=== PATIENT | male | born 1955 | race Caucasian/White ===

== ENCOUNTER 2024-01-04 20:19 | Inpatient (IN) | payer OTHER, SELFPAY ==
[2024-01-04] VITALS (9 sets, daily range): BP systolic 119–152; BP diastolic 52–83; BMI 32.7
--- NOTE | 2024-01-04 16:06 | ED.GENMED ---
History of Present Illness
General
Chief Complaint: Fever
Source: patient
Exam Limitations: none
Time Seen by Provider: 01/04/24 15:58
Nursing documentation reviewed up to this point in time: agreed with
Travel History
Have you had any contact with someone who has COVID-19?: No
Do you have any symptoms of coronavirus? Fever > 100 degrees, chills, cough, shortness of breath, sore throat, loss of taste or smell, muscle aches, or headache?: No
History of Present Illness
History of Present Illness:
68-year-old male with a past medical history of hypertension, COPD who presents to the emergency department for evaluation of cough and shortness of breath. Patient reports onset of symptoms about 2 weeks ago and have been constant since that time.
He reports that he has had hacking cough occasionally productive of clear sputum. He says he is having progressive shortness of breath. No chest pain. Has not noticed any fever or chills. He denies any chest pain. He says that he has had a
flareup of his gout recently over the past week or so has had some redness, pain in the left knee similar to prior gout flares. He does note that he was seen in urgent care last week for his cough and was given some medications to take but he
cannot recall the names and he says they did not help. He did have an episode of posttussive emesis in triage.
Review of Systems
Review of Systems
All Other Systems: ROS reviewed and negative except as documented in HPI and ROS
Constitutional: Denies fever (Denies fever but had a fever here in triage) or chills
Respiratory: Reports cough and trouble breathing
Cardiac: Denies chest pain or palpitations
ABD/GI: Reports vomiting (Posttussive); Denies abdominal pain or nausea
: Denies flank pain
Musculoskeletal: Denies edema, neck pain or back pain
Neurological: Denies headache
Phy Exam
Physical Exam
Physical Exam:
General: Awake, alert; no acute distress
Head: Normocephalic, atraumatic
Eyes: Conjunctiva normal
Throat: Airway intact, handling secretions
Neck: Trachea midline, supple without meningismus
Lungs: Hacking cough, tachypnea; acceptable pulse ox on room air; diffuse bilateral expiratory wheezing throughout all lung silva
Heart: Tachycardia with regular rhythm, no murmurs, gallops, or rubs
Abd: Soft, non distended, nontender
Neuro: Cranial nerves grossly intact, speech fluid
Extremities: No edema in extremities, warm and well-perfused; he does have some warmth and erythema of the left knee and pain with range of motion, small joint effusion
Scores
Heart Failure Risk
Heart Failure Risk Score: Not Applicable
Heart Score for Chest Pain Patients
STEMI patient?: Not applicable
Withdrawal Assessment of Alcohol
Withdrawal Assessment Completed?: Not applicable
Course
Orders/Labs/Results
Orders:
Orders
01/04/24 16:00
Electrocardiogram (*1) Urgent
Reason for Study: Tachycardia
EKG- Treatment ONCE
Acetaminophen [Tylenol] 500 mg PO NOW STA
CR Chest - 2 Views Urgent
Comment:
Reason For Exam: sob
01/04/24 16:01
0.9% Sodium Chloride 500 ml [Nss] 500 ml IV BOLUS
01/04/24 16:06
Ipratropium/Albuterol Sulfate [Duoneb] 3 ml INH R NOW STA
MethylPREDNISolone PF [Solu-Medrol Pf] 125 mg IV NOW STA
01/04/24 16:37
Blood Culture Q30M
[facility] Source: Blood/Venous
Specimen Description:
01/04/24 16:39
COVID-19 Antigen Urgent
Source: Nasal Swab
Complete Blood Count/With Diff Urgent
Comprehensive Metabolic Panel Urgent
Lactate Level [Lactic Acid] Urgent
NT-proBNP Urgent
Influenza A+B Rapid Molecular Urgent
[facility] Source: Nasal Swab
Specimen Description:
01/04/24 18:14
Body Fluid Cell Count Urgent
What is the Body Fluid: joint
Date Specimen was Collected: 01/04/24
Time Specimen was Collected: 18:07
Comment: with DIFF
Body Fluid Crystals Urgent
What is the Body Fluid: joint
Date Specimen was Collected: 01/04/24
Time Specimen was Collected: 18:07
Body Fluid Glucose Urgent
Fluid Source: Other
Other Source: left knee
Date Specimen was Collected: 01/04/24
Time Specimen was Collected: 18:07
Blood Culture Q30M
KVNG Source: Blood/Venous
Specimen Description:
Fluid Culture with Gram Stain Urgent
K[facility] Source: Joint Fluid
Specimen Description:
Date Specimen was Collected: 01/04/24
Time Specimen was Collected: 18:07
Abnormal Lab Results
01/04/24
16:39
WBC 14.5 H 10^3/uL
(4.8-10.8)
RBC 3.61 L 10^6/uL
(4.70-6.10)
Hgb 10.2 L g/dL
(13.0-18.0)
Hct 31.3 L %
(39.0-52.0)
MCHC 32.6 L g/dL
(33.0-37.0)
MPV 12.3 H fL
(7.4-10.4)
Abs Immat Gran (auto) 0.1 H 10^3/uL
(0-0.05)
Absolute Neuts (auto) 12.1 H 10^3/uL
(1.4-6.5)
Absolute Lymphs (auto) 1.0 L 10^3/uL
(1.2-3.4)
Absolute Monos (auto) 1.3 H 10^3/uL
(0.1-0.6)
Immature Gran % 0.6 H %
(0-0.5)
Neutrophils % 83.3 H %
(42.2-75.2)
Lymphocytes % 6.7 L %
(20.5-51.1)
Glucose 122 H mg/dl
(70-99)
01/04/24 16:39
01/04/24 16:39
Vital Signs
Initial and Last Documented VS:
Initial Vital Signs
Temp Pulse Resp BP Pulse Ox
39.1 C H 129 26 152/83 95
01/04/24 15:47 01/04/24 15:47 01/04/24 15:47 01/04/24 15:47 01/04/24 15:47
Last Documented Vital Signs
Temp Pulse Resp BP Pulse Ox
39.1 C H 96 22 136/61 95
01/04/24 15:47 01/04/24 18:45 01/04/24 18:45 01/04/24 18:04 01/04/24 18:45
Procedures
Incision/Drainage/Joint Aspiration
Left Knee:
Anethesia: 1% Lidocaine with Epi
Preparation: cleaned with Betadine
Type of procedure: aspiration
Nature of site: other (joint effusion)
Loculations broken up: No
How much fluid was obtained?: number in mls (40)
Fluid description: cloudy and yellowish
Treatment: bandaid applied
MDM/Problems Addressed
Differential Diagnosis Includes:
Dyspnea: COPD exacerbation, pneumonia, pulmonary embolism
Knee pain: Gout flare, septic arthritis, osteoarthritis
MDM/Problems Addressed:
68-year-old male presents primarily for evaluation of cough and shortness of breath over the past 2 weeks; also has had some knee pain similar to prior gout flares. He is hypertensive, tachycardic, febrile, tachypneic on arrival. Physical exam as
above. Plan to place an IV check labs including CBC CMP, lactate, blood cultures, BNP. Swab for COVID and influenza. Will check chest x-ray and EKG. Will treat with Tylenol, steroid, DuoNeb. Monitor closely reassess at the above.
Labs reviewed: CBC shows leukocytosis to 14.5. CMP shows no clinically significant abnormalities. His viral swabs are negative here. Chest x-ray no clear pneumonia. Clinical reassessment after DuoNeb and steroid he has had some subjective
improvement still some slight wheezing but improved. Suspect likely viral URI triggered acute COPD exacerbation. Will cover with some azithromycin given fever. As far as his left knee pain�he says this is consistent with prior gout flares but
with his fever and leukocytosis I think he should have arthrocentesis to rule out a septic arthritis; he is agreeable, will proceed with this procedure and send fluid studies.
Arthrocentesis performed to drain 40 cc of cloudy yellowish fluid, sent to lab for analysis, Gram stain and culture.
Fluid shows WBC 75,000 and with positive monosodium urate crystals most consistent with diagnosis of acute inflammatory arthritis secondary to gout. Will hold on antibiotics for now but Gram stain and culture were sent and are pending. Will plan
for admission for continued treatment of acute COPD exacerbation and can follow-up on Gram stain and culture studies. Case discussed with hospitalist for admission.
Chronic conditions affecting care:
Gout, hypertension, COPD
Acute Exacerbation and/or Progression of Chronic Illness:
Acute COPD exacerbation treated with DuoNeb and steroids
*Radiology
Radiology exam reviewed: preliminary read by ED provider and radiology read reviewed
*Pulse Oximetry
Patient hypoxic: no
*Critical Care Note
Total Time (30-74mins, 75-104mins- exclusive of procedures): Not Applicable
Data Reviewed
Source: patient
Patient Management
Discussion with other providers: Hospitalist (Discussed with hospitalist)
Escalation/DeEscalation of care consider admission/obs:
Admission indicated
ED Attending Note
-
Portions of this chart may have been created with voice recognition software.� Occasional wrong word or��sound alike� substitutions may have occurred due to the inherent limitations of voice recognition software.
Discharge Plan
Departure
Discharge Problem:
Chronic obstructive pulmonary disease with acute exacerbation, Gout
Interventions
Interventions:
*Risk Screen - Suicide Last Done: 01/04/24 15:47
*General Assessment Last Done: 01/04/24 15:47
*Neglect/Abuse Screening Last Done: 01/04/24 15:47
ED- Fall Risk Assessment Last Done: 01/04/24 16:07
*ED COVID-19 Vaccine History Last Done: 01/04/24 16:07
ED-Musculoskeletal Assessment Last Done: 01/04/24 16:07
ED- Neurological Assessment Last Done: 01/04/24 16:07
ED- Pulmonary Assessment Last Done: 01/04/24 16:07
ED-Skin Assessment Last Done: 01/04/24 16:07
[2024-01-04] MEDS: DUONEB 3 ML INH (16:46)
[2024-01-04] MEDS: TYLENOL 500 MG PO (16:46)
[2024-01-04] MEDS: NSS 500 IV (16:46)
[2024-01-04] MEDS: SOLU-MEDROL PF 125 MG IV (16:46)
[2024-01-04 17:01] LABS: % Basophils 0.1 % (0-2); % Eosinophils 0.1 % (0-6); % Immature Granulocytes 0.6 % (0-0.5); % Lymphocytes 6.7 % (20.5-51.1); % Monocytes 9.2 % (1.7-9.3); % Neutrophils 83.3 % (42.2-75.2); Absolute Immature Granulocytes 0.1 10^3/uL (0-0.05); Absolute Monocytes 1.3 10^3/uL (0.1-0.6); Absolute Neutrophils 12.1 10^3/uL (1.4-6.5); Hematocrit 31.3 % (39.0-52.0); Hemoglobin 10.2 g/dL (13.0-18.0); Mean Corp Hgb Conc. 32.6 g/dL (33.0-37.0); Mean Corpuscular Hgb 28.3 pg (27.0-31.0); Mean Corpuscular Volume 86.7 fL (80.0-94.0); Mean Platelet Volume 12.3 fL (7.4-10.4); Nucleated Red Blood Cells % 0.3 % (-); Platelet Count 199 10^3/uL (130-400); Red Blood Cell Count 3.61 10^6/uL (4.70-6.10); Red Cell Dist. Width 14.1 % (11.5-14.5); White Blood Cell Count 14.5 10^3/uL (4.8-10.8)
[2024-01-04 17:13] LABS: COVID-19 Antigen Negative (Negative); Lactic Acid 1.8 mmol/L (0.7-2.0)
[2024-01-04 17:15] LABS: ALT (SGPT) 20 U/L (0-50); AST (SGOT) 24 U/L (17-59); Albumin 3.5 g/dl (3.5-5.0); Alkaline Phosphatase 86 U/L (38-126); Blood Urea Nitrogen 13 mg/dl (9-20); Calcium 8.7 mg/dl (8.4-10.2); Carbon Dioxide 27 mmol/L (22-30); Chloride 100 mmol/L (98-107); Estimated Creatinine Clearance 121 ml/min; Glucose 122 mg/dl (70-99); Potassium 4.4 mmol/L (3.5-5.1); Sodium 135 mmol/L (135-145); Total Bilirubin 1.1 mg/dl (0.2-1.3); Total Protein 7.1 g/dl (6.3-8.2); eGFR > 60.00
[2024-01-04 17:23] LABS: NT-proBNP 319 pg/ml
[2024-01-04 18:42] LABS: Body Fluid Glucose 133 mg/dl
[2024-01-04 18:43] LABS: Body Fluid WBC 75830 /CUMM
[2024-01-04 19:00] LABS: Body Fluid Second Tech EYM
--- NOTE | 2024-01-04 19:15 | HPS.HSE ---
Addendum entered and electronically signed by Gal Huber MD 01/04/24 20:20:
HPI
68M Recently moved for [place], no prior visit to , PMH COPD, not on home O2, HTN
pw cough with minimal clear sputum. SoB 2weeks s/p 5 days course of PO prednisone for COPD flare as OP
Also reports Lt ankle pain - cane gait dysfuct then Lt knee pain - HX Gout on colchicine - aspirateed Lt knee by ER attd - senet for aspirate analysis
Reports fever and chills
PHX
COPD
basal cell carcinoma
GOUT
Past Surgical History: Reports Other
Additional Past Surgical History:
basal cell carcinoma
skin graft to Forehead
SHx
Tobacco: Non-smoker
Alcohol: None
Drug: None
Personal: Single
Living: Alone
FHX : Not pertinent
Reviewed VS: T 102 .4 HR 96 BP 136/60 POx 95 % on RA
PE
Gen: pleasant , NAD, not toxic
HEENT: well healed skin graft at fore head , BCC at lt eyes
Neck: supple
Lungs: diffuse exp wheeze
Cor: RRR S1 S2
Abdomen: soft NT NG BS +
PARANORMAL INVESTIGATOR: AAO3 NFND
MS: warm and mild swelling of Lt knee , left ankle swelling, redness
Skin; BCC at lt eyes, Rt Uexs and back
Psych: appropriate
Data
WCC 14s
Hgb 10s
pBNP 319
NEG FLU/ Covid
Lt Knee aspirate by ER attd
Fluid shows WBC 75,000
Positive monosodium urate crystals
CXR
1. Mildly decreased bilateral lung volumes.
2. Mild cardiomegaly.
EKG
SINUS TACHYCARDIA
CANNOT RULE OUT ANTERIOR INFARCT , AGE UNDETERMINED
ABNORMAL ECG
NO PREVIOUS ECGS AVAILABLE
Last hospitalist admission: No prior admission to
ASSESSMENT & PLAN
Persistent COPF flare - inadequate response to OP Steroids
Not home O2 dependent
- check PCT
- Agree with IV steroids - switch to IV Decadron 4mg q8h
- DuoNebs qid and PRN
- f/u POx
- Pul consult
Acute inflammatory arthritis duet gout flare in Lt ankle and Lt knee
HX gout
- IV Dexamethasone to treat both acute gout and COPD AE
- f/u clinical response
- Rhem consult
Current fever is likely 2/2 acute Gout flare - doubt infective
- Observing off ABx for now
HX Basal cell CA: s/p surgery and graft
- at present Basal cell CA on left shoulder, back, b/l eyes, left arm
- pending insurance to follow up with [facility]
Primary HTN
-BP stable
- cont. INFORMATICS NURSE SPECIALIST
DVT Px: LMWH
Code: Full code
IP MS
Original Note:
Family Physician
-
Family Physician: PHYSICIAN PRIVATE
Chief Complaint
-
sob
cough
left ankle and knee pain
History of Present Illness
68-year-old male with a past medical history of hypertension, COPD, basal skin carcinoma who presents to the emergency department for evaluation of cough and shortness of breath since december 17. stated hacking cough with very little sputum
production.sob and cough worse with activity. patient evaluated by urgent care and was prescribed steroids and Tessalon, which he took 5 days course of prednisone with no improvement in his symptoms. stated WATERS and dizzy. patient vomited twice with
cough today. denied abdominal pain, and diarrhea.denied chest pain. � Has not noticed any fever or chills.�denied dysuria or hematuria. day before yesterday, he started having pain in left ankle. its red and swollen. he can barely walk due to the
pain. he is been using his friends cane. today he noticed pain and swelling in his left knee.
he just moved from [place] to [place]. patient has basal cell carcinoma on his back, left shoulder, b/l eyes and right hand. waiting for insurance approval for him to follow up with [facility].
In ER patient received Solu Medrol, Zithromax and neb treatment. admitting for further management.
Medical History
Past Medical History
Past Medical History: Reports Other
Additional Past Medical History:
COPD
basal cell carcinoma
GOUT
Past Surgical History: Reports Other
Additional Past Surgical History:
basal cell carcinoma
skin graft to Forehead
Social History
Tobacco: Non-smoker
Alcohol: None
Drug: None
Personal: Single
Living: Alone
Family History
Family History: Not pertinent
Allergies / Home Medications
Allergies reflects when Allergies were last updated in [employer].
Home Medications with original date entered in [employer]
Allergy/Medication List:
Allergies
Allergy/AdvReac Type Severity Reaction Status Date / Time
aspirin Allergy Intermediate Unknown Verified 01/04/24 15:55
Home Medications
colchicine 0.6 mg tablet 0.6 mg PO DAILY PRN gout 01/04/24
gabapentin 100 mg capsule 200 mg PO DAILY 01/04/24
ibuprofen 200 mg capsule 200 mg PO Q6H PRN mild pain 01/04/24
lisinopril 20 mg tablet 20 mg PO DAILY 01/04/24
Review of Systems
-
Constitutional: Reports No Symptoms
EENT: Reports No Symptoms
Respiratory: Reports Cough and Trouble Breathing
Cardiac: Reports No Symptoms
Abdomen/GI: Reports No Symptoms
: Reports No Symptoms
Musculoskeletal: Reports Other (left ankle and knee pain)
Skin: Reports No Symptoms
Neurological: Reports No Symptoms
Endocrine: Reports No Symptoms
Hematologic/Lymphatic: Reports No Symptoms
Psych: Reports No Symptoms
Physical Exam
Vital Signs
Vital Signs
Temp Pulse Resp BP Pulse Ox
102.4 F H 96 22 136/61 95
01/04/24 15:47 01/04/24 18:45 01/04/24 18:45 01/04/24 18:04 01/04/24 18:45
Physical Exam
General: Well Developed, Well Nourished and No Apparent Distress
HEENT: NormoCephalic, Moist mucous membranes and Atraumatic
Respiratory: Wheezes
Cardiac: S1/S2 and Regular Rhythm; No Murmur or Rub
GI: Soft, Non Tender, Non Distended and Normal Bowel Sounds; No Organomegaly
Rectal: Deferred by Provider
Musculoskeletal: No Clubbing, No Cyanosis and Other (left ankle swelling, redness, left knee pain)
Skin: No Rash
Neuro: AO x 3 and Nonfocal/grossly intact
Psych: Calm
Laboratory Results
-
01/04/24 16:39
01/04/24 16:39
Laboratory Results
Lactic Acid 1.8 mmol/L (0.7-2.0) 01/04/24 16:39
Total Bilirubin 1.1 mg/dl (0.2-1.3) 01/04/24 16:39
AST 24 U/L (17-59) 01/04/24 16:39
ALT 20 U/L (0-50) 01/04/24 16:39
Alkaline Phosphatase 86 U/L (38-126) 01/04/24 16:39
Data Reviewed
-
Diagnostic Radiology: Report Reviewed by me
Lab Data: Labs Reviewed by me
Impression/Plan
-
# COPD exacerbation
-COVID-negative
-Chest x-ray with impression of mildly decreased bilateral lung volumes, mild cardiomegaly
-Negative for influenza A and B
-Decadron 4mg iv every 8 hours
-received a dose of Zithromax in ER
-procal ordered
-hold abx at this time
-nebx prn for sob and wheezing
-oxygenating very well on RA
-continue to monitor oxygenation
-Tylenol prn for fever and pain
-Mucinex for cough
-pulmonology consulted
# left ankle and knee pain likely gout flare
-sepsis as evident by temp 102, tachy on arrival and wbc
-HR improved
-wbc 14.5 likely from steroids
-Knee fluid sent for Gram stain and cultures
-Fluid shows WBC 75,000 and with positive monosodium urate crystals
-Tylenol as needed for pain
-pending culture
-colchicine continued
-Blood cultures sent from ER
-Wound abscess culture sent from ER
-PT consulted
# Normocytic anemia likely chronic
-Hemoglobin 10.2
-No active bleeding
-Continue to monitor
#hxt of Basal cell CA
-s/p surgery and graft
-at present Basal cell CA on left shoulder, back, b/l eyes, left arm
-pending insurance to follow up with [facility]
#essential HTN
-BP stable
-lisinopril continued
#DVT prophylaxis
-Lovenox
#CODE status
-full code
[2024-01-04] MEDS: ZITHROMAX 500 MG PO (20:03)
[2024-01-04 23:06] LABS: Urine Albumin Trace (Neg - Trace); Urine Bilirubin 1+ (Negative); Urine Character Clear (Clear); Urine Color Yellow; Urine Glucose 3+ (Negative); Urine Ketone Trace (Negative); Urine Leukocyte Negative (Negative); Urine Nitrite Negative (Negative); Urine Occult Blood Negative (Negative); Urine Urobilinogen Negative (Neg - 1+)
[2024-01-04 23:19] LABS: Procalcitonin 0.09 ng/ml (0.0-0.25)
[2024-01-04] MEDS: MUCINEX 1200 MG PO (23:49)
[2024-01-04] MEDS: DECADRON 4 MG IV (23:49)
[2024-01-05] VITALS: BP 152/63; BMI 32.2
[2024-01-05 07:05] VITALS: BP 123/58
[2024-01-05 08:06] LABS: Blood Urea Nitrogen 14 mg/dl (9-20); Calcium 8.5 mg/dl (8.4-10.2); Carbon Dioxide 29 mmol/L (22-30); Chloride 102 mmol/L (98-107); Estimated Creatinine Clearance 120 ml/min; Glucose 159 mg/dl (70-99); Potassium 4.6 mmol/L (3.5-5.1); Sodium 133 mmol/L (135-145); eGFR > 60.00
[2024-01-05] MEDS: DECADRON 4 MG IV ×3 (08:07→23:05)
[2024-01-05] MEDS: COLCHICINE 0.599999999999999978 MG PO (08:07)
[2024-01-05] MEDS: MUCINEX 1200 MG PO ×2 (08:07→20:43)
[2024-01-05] MEDS: ZESTRIL 20 MG PO (08:07)
[2024-01-05] MEDS: NEURONTIN 200 MG PO (08:08)
[2024-01-05] MEDS: TYLENOL 650 MG PO (08:18)
[2024-01-05] MEDS: DUONEB 3 ML INH ×2 (08:21→14:59)
[2024-01-05 08:22] LABS: % Immature Granulocytes 0.6 % (0-0.5); % Lymphocytes 6.5 % (20.5-51.1); % Monocytes 3.1 % (1.7-9.3); % Neutrophils 89.8 % (42.2-75.2); Absolute Immature Granulocytes 0.1 10^3/uL (0-0.05); Absolute Lymphocytes 0.9 10^3/uL (1.2-3.4); Absolute Monocytes 0.4 10^3/uL (0.1-0.6); Absolute Neutrophils 12.2 10^3/uL (1.4-6.5); Hematocrit 30.6 % (39.0-52.0); Hemoglobin 9.8 g/dL (13.0-18.0); Mean Corpuscular Hgb 28.2 pg (27.0-31.0); Mean Corpuscular Volume 88.2 fL (80.0-94.0); Mean Platelet Volume 12.5 fL (7.4-10.4); Nucleated Red Blood Cells % 0.1 % (-); Platelet Count 179 10^3/uL (130-400); Red Blood Cell Count 3.47 10^6/uL (4.70-6.10); Red Cell Dist. Width 14.2 % (11.5-14.5); White Blood Cell Count 13.6 10^3/uL (4.8-10.8)
--- NOTE | 2024-01-05 08:31 | CON.PUL ---
Consultation
Consultation Request
Date/Time Consultation Requested: 01/04
Date/Time Consultation Performed: 01/05/2024
Reason for Consultation: COPD
Medical History
-
History of Present Illness:
History obtained from the patient and reviewing the chart. Patient is a 68-year-old male with history of COPD, multiple recurrent skin cancers, basal cell cancer requiring multiple surgeries, who presents with 3 weeks of shortness of breath, chest
congestion, cough. He has been under a lot of stress as his fianc�e recently . He moved from [facility] to the [facility]. Patient describes productive cough but denies hemoptysis. He had been seen by urgent care,
treated with antitussive therapy, steroids. He then developed episode of emesis, headaches and dizziness and for this reason brought himself into [facility] where upon arrival, temperature 102.4, pulse 96, breathing at 22, blood pressure
136/61, 95%. Chest exam per ED records suggest diffuse wheezing. He was admitted for COPD exacerbation, started on IV steroids nebulized therapy. We are asked to comment on his pulmonary process
Of note, patient is complaining of left ankle pain, knee pain and swelling. To me he denied any nausea, emesis. Denies any falls. He does walk with a cane
.
PMH: History of COPD, recurrent basal cell carcinoma requiring multiple surgeries, gout, skin graft of the forehead from the right thigh
Past Medical History
Past Medical History: None (See above)
Past Surgical History: None (See above)
Social History
Tobacco: Former Smoker ([id number] history of smoking quit 2013)
Alcohol: Daily (6 to 12 pack of beer a day, has not drank in 3 weeks)
Drug: None
Personal: Single
Living: With Family (Living with his cousin, moved from [place] November 2023)
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
Family History
Family History: Reviewed & Not Pertinent (Family history negative for lung disease, blood clots, lung cancer)
Allergies / Home Medications
Allergies
Allergy/AdvReac Type Severity Reaction Status Date / Time
aspirin Allergy Intermediate Unknown Verified 01/04/24 15:55
Home Medications
Medication Instructions Recorded Confirmed Last Taken Type
colchicine 0.6 mg tablet 0.6 mg PO DAILY PRN gout 01/04/24 01/04/24 01/04/24 History
gabapentin 100 mg capsule 200 mg PO DAILY 01/04/24 01/04/24 01/04/24 History
ibuprofen 200 mg capsule 200 mg PO Q6H PRN mild pain 01/04/24 01/04/24 Unknown History
lisinopril 20 mg tablet 20 mg PO DAILY 01/04/24 01/04/24 01/04/24 History
Review of Systems
-
All other systems: Negative unless noted
Vitals / Labs / Diagnostic Testing
Vital Signs
Temp Pulse Resp BP Pulse Ox
98.2 F 87 22 123/58 94
01/05/24 07:05 01/05/24 08:25 01/05/24 08:25 01/05/24 08:07 01/05/24 08:25
Lab Data
01/05/24 07:02
01/05/24 07:02
Microbiology
01/04/24 18:14 Joint Fluid Gram Stain - Preliminary
01/04/24 16:39 Nasal Swab Influenza Types A & B (SHELBY) - Final
Negative for Influenza A & B, NAAT
Negative results must be combined with clinical observations
and patient history.
Nucleic Acid Amplification test (NAAT)performed on the
[employer] platform.
Diagnostic Testing:
Physical Exam
-
HEENT: Normocephalic, Anicteric and Other (Erythematous conjunctiva left eye. Skin graft of his forehead)
Cardiovascular: S1/S2, Regular Rhythm, Murmur (n), Rub (n), Peripheral Edema (n), Calf Tenderness (n) and Other (Left seo/ankle discomfort)
Respiratory: Wheeze (Mild scattered), Rales (n), Rhonchi (Mild) and Non-Labored Respirations
GI: Soft and Non Distended (Obese)
Neurology: Awake, Alert, Oriented and No Motor Deficits (Moves all extremities, able to sit up without difficulty)
Skin: Other (Erythematous open wound in the mid back, no obvious drainage. Scattered basal cell carcinoma/surgeries)
General: Comfortable
Assessment
-
68-year-old male with history of COPD, [id number] history of smoking quit 2013, presents with 3 weeks of shortness of breath, chest congestion, cough. He failed outpatient therapy with prednisone and antitussive therapy. Admitted for COPD
exacerbation. Also found to have left lower extremity knee swelling, drained in the ED. We are asked to help from pulmonary standpoint 01/05/2024
Acute COPD exacerbation
3 weeks of symptoms of chest congestion, cough, shortness of breath
Failed outpatient therapy with steroids
Mild bibasilar infiltrate, left greater than right per chest x-ray
Left knee swelling status post aspiration/drainage in the ED 01/05/2024
Sinus tachycardia
inferior Q waves, chronicity unclear
Conditions present prior to admission
Recurrent basal cell carcinoma
Forehead with graft surgery
Arms
Mid back lesion noted
History of gout
[id number] history of smoking quit 2013
Moderate alcohol use, 6-12 beers a day
Last drink 3 weeks ago
Suspected sleep disordered breathing
Plan/recommendations
At this time, patient appears to be comfortable, feels much improved since admission. Diffuse wheezing noted in ED
Presently he has mild wheezing and rhonchi
Chest x-ray with mild bibasilar infiltrate, left greater than right, my review
No old films for review
Significant alcohol and tobacco history noted
Last alcohol drink 3 weeks ago abnormal EKG noted
Moving forward
Continue with IV steroids
Patient would benefit from outpatient evaluation for maintenance inhaler therapy
He denies history of frequent COPD exacerbations
Influenza screen negative, MRSA screen, blood cultures, fluid culture pending
Procalcitonin normal
Continue albuterol/Atrovent as needed
Patient would benefit from lung cancer screening, significant high risk for lung cancer
Consider outpatient low-dose CT chest, outpatient pulm evaluation, outpatient spirometry/PFT
Patient also high risk for sleep apnea based on airway exam
EKG findings noted. Follow clinically
Patient states he has not seen cardiology in the past
Outpatient follow-up information left in chart
We will follow
--- NOTE | 2024-01-05 09:02 | PTCARENOTE ---
pt aaox3. states pain in left knee pain med given as ordered. room air. breath sounds diminished with ex wheezing prn neb given. open sores noted on mid back and both arms. pt declined any wound care.
[2024-01-05 09:20] VITALS: BP 109/56; PULSE 70; O2SAT 97
--- NOTE | 2024-01-05 11:50 | W.PN.HOSP.TC ---
Today's Communication/Plan
-
nebs, steroids
appreciate pulm
Assessment / Plan
Assessment / Plan
# COPD exacerbation
-COVID-negative
-Chest x-ray with impression of mildly decreased bilateral lung volumes, mild cardiomegaly
-Negative for influenza A and B
-Decadron 4mg iv every 8 hours
-received a dose of Zithromax in ER
-procal negative
-hold abx at this time
-nebx prn for sob and wheezing
-oxygenating very well on RA
-continue to monitor oxygenation
-Tylenol prn for fever and pain
-Mucinex for cough
-pulmonology consult appreciated - pt will need follow up on DC
# left ankle and knee pain likely gout flare
-SIRS 2/2 gout, doubt infection (improvement off abx); gram stain neg
-Fluid shows WBC 75,000 and with positive monosodium urate crystals
-Tylenol as needed for pain
-steroids to treat gout flare
-PT/OT
# Normocytic anemia likely chronic
-Hemoglobin 10.2
-No active bleeding
-Continue to monitor
#hxt of Basal cell CA
-s/p surgery and graft
-at present Basal cell CA on left shoulder, back, b/l eyes, left arm
-pending insurance to follow up with [facility]
#essential HTN
-BP stable
-lisinopril continued
#DVT prophylaxis
-Lovenox
#CODE status
-full code
Anticipated Discharge: 24 - 48 hours
Subjective/Interval History
-
Date of Service: January 05, 2024
feeling much better than yesterday
breathing better
left knee less swollen and painful, continues to be uncomfortable
Objective Data
-
Labs:
Laboratory Results
01/05/24
07:02
WBC 13.6 H
Hgb 9.8 L
Hct 30.6 L
Plt Count 179
Sodium 133 L
Potassium 4.6
Chloride 102
Carbon Dioxide 29
BUN 14
Creatinine 0.7
Glucose 159 H
Calcium 8.5
Vital Signs:
Vital Signs
Temp Pulse Resp BP Pulse Ox
98.2 F 87 22 123/58 94
01/05/24 07:05 01/05/24 08:25 01/05/24 08:25 01/05/24 08:07 01/05/24 08:25
Review of Systems
-
History Source: Patient
All other systems: Reviewed and negative
Physical Exam
-
General: No Apparent Distress
HEENT: PERRLA
Respiratory: Wheezes and Decreased Breath Sounds
Cardiac: Regular Rhythm and S1/S2
GI: Soft and Nontender
Musculoskeletal: No Edema
Skin: Warm and Dry; Negative Rash
Neuro: AO x 3
Psych: Calm
Data Reviewed
-
Diagnostic Radiology: Report Reviewed by me
Labs: Labs Reviewed by me
--- NOTE | 2024-01-05 13:04 | CON.RHM ---
Assessment/Plan
-
Will continue steroid taper per Pulmonology
Recommend order serum uric acid
Pt should follow up outpatient for gout management.
History of Present Illness
-
Pt is a 68 yo male hx recurrent skin cancer, gout and COPD who presented to [facility] ED yesterday for COPD exacerbation. At this time he also c/o of gout flare at his left knee and left ankle. Pt was had his left knee aspirated in ED last
evening. Pt notes significant relief s/p aspiration. He notes longstanding hx of gout. He recently moved to this area- was managed by PCP with colchicine PRN. Denies seeing rheum in past. He notes 5/6 gout flares per year. Prior to this last flare
was 2 months ago at great toe. Denies allopuinol in past. Notes hx alcohol abuse, but no alcohol use currently. Denies purine rich diet.
Review of Systems
-
General: Shortness of Breath: Yes
Crystal Arthritis: Left Knee: Yes and Swelling: Yes
Data Reviewed
Patient Allergies
Allergy/AdvReac Type Severity Reaction Status Date / Time
aspirin Allergy Intermediate Unknown Verified 01/04/24 15:55
Physical Exam
-
Constitutional: Alert and Oriented
Skin: Other (large skin graft at forehead)
Psych: Appropriate Behavior and Speech Appropriate
Joints: No Synovitis Anywhere (Left knee is warm, swollen and moderately tender, ecchymosis around aspiration site. Left ankle is warm, tender at lateral aspect. )
-: DIP's: Normal, PIP's: Normal, MCP's: Normal, Right Wrist: Normal, Left Wrist: Normal, Right Elbow: Normal, Left Elbow: Normal, Right Shoulder: Normal and Left Shoulder: Normal
[2024-01-05 15:10] VITALS: BP 109/49
[2024-01-05] MEDS: LOVENOX 40 MG SC (17:28)
[2024-01-05 22:52] VITALS: BP 108/50
[2024-01-06 07:30] VITALS: BP 103/48
[2024-01-06] MEDS: ZESTRIL 20 MG PO (08:25)
[2024-01-06] MEDS: COLCHICINE 0.599999999999999978 MG PO (08:25)
[2024-01-06] MEDS: MUCINEX 1200 MG PO (08:25)
[2024-01-06] MEDS: DECADRON 4 MG IV (08:25)
[2024-01-06] MEDS: NEURONTIN 200 MG PO (08:25)
[2024-01-06] MEDS: TYLENOL 650 MG PO (08:29)
[2024-01-06 08:36] LABS: % Basophils 0.1 % (0-2); % Immature Granulocytes 0.8 % (0-0.5); % Lymphocytes 7.2 % (20.5-51.1); % Monocytes 4.9 % (1.7-9.3); Absolute Immature Granulocytes 0.1 10^3/uL (0-0.05); Absolute Monocytes 0.7 10^3/uL (0.1-0.6); Absolute Neutrophils 12.4 10^3/uL (1.4-6.5); Hematocrit 29.1 % (39.0-52.0); Hemoglobin 9.4 g/dL (13.0-18.0); Mean Corp Hgb Conc. 32.3 g/dL (33.0-37.0); Mean Corpuscular Hgb 28.5 pg (27.0-31.0); Mean Corpuscular Volume 88.2 fL (80.0-94.0); Mean Platelet Volume 12.8 fL (7.4-10.4); Nucleated Red Blood Cells % 0.3 % (-); Platelet Count 142 10^3/uL (130-400); Red Cell Dist. Width 14.2 % (11.5-14.5); White Blood Cell Count 14.2 10^3/uL (4.8-10.8)
--- NOTE | 2024-01-06 08:44 | W.PN.PUL3 ---
Today's Communication / Plan
-
Transition to oral prednisone
Provide albuterol rescue inhaler for now at discharge
Wean by 10 mg every 3 days until off
Ambulate, assess oxygenation
Abnormal EKG noted. Consider outpatient cardiology evaluation
Pulmonary follow-up information left in chart
We will sign off. Please call with questions
Assessment
-
68-year-old male with history of COPD, [id number] history of smoking quit 2013, presents with 3 weeks of shortness of breath, chest congestion, cough. He failed outpatient therapy with prednisone and antitussive therapy. Admitted for COPD
exacerbation. Also found to have left lower extremity knee swelling, drained in the ED. We are asked to help from pulmonary standpoint 01/05/2024
Acute COPD exacerbation
3 weeks of symptoms of chest congestion, cough, shortness of breath
Failed outpatient therapy with steroids
Mild bibasilar infiltrate, left greater than right per chest x-ray
Left knee swelling status post aspiration/drainage in the ED 01/05/2024
Sinus tachycardia
inferior Q waves, chronicity unclear
Conditions present prior to admission
Recurrent basal cell carcinoma
Forehead with graft surgery
Arms
Mid back lesion noted
History of gout
[id number] history of smoking quit 2013
Moderate alcohol use, 6-12 beers a day
Last drink 3 weeks ago
Suspected sleep disordered breathing
Plan/recommendations
At this time, patient appears to be comfortable, feels much improved since admission. Diffuse wheezing noted in ED
Chest exam today is clear, no wheezing, no significant rhonchi
Chest x-ray with mild bibasilar infiltrate, left greater than right, my review
No old films for review
Significant alcohol and tobacco history noted
Last alcohol drink 3 weeks ago abnormal EKG noted
Moving forward
Transition to oral prednisone, wean off over the next 10 days, decrease by 10 mg every 3 days until off
Patient would benefit from outpatient evaluation for maintenance inhaler therapy
He denies history of frequent COPD exacerbations
Influenza screen negative, MRSA screen, blood cultures, fluid culture pending
Procalcitonin normal
Continue albuterol/Atrovent as needed
Patient would benefit from lung cancer screening, significant high risk for lung cancer
Consider outpatient low-dose CT chest, outpatient pulm evaluation, outpatient spirometry/PFT
Patient also high risk for sleep apnea based on airway exam
EKG findings noted. Follow clinically
Patient states he has not seen cardiology in the past
Defer any outpatient or inpatient evaluation to hospitalist
Outpatient follow-up information left in chart
Okay for discharge from pulmonary standpoint
We will sign off. Please call with questions
Subjective Data
-
Date of Service:
Date of Service: January 06, 2024
Subjective:
Patient feels much improved. Feels shortness of breath is back to baseline. Denies cough, chest pain, nausea, abdominal pain. Currently on room air
Objective Data
Data Reviewed
Vital Signs / I&O / Oxygen:
Vital Signs
Temp Pulse Resp BP Pulse Ox
97.8 F 56 18 103/48 99
01/06/24 07:30 01/06/24 07:30 01/06/24 07:30 01/06/24 07:30 01/06/24 07:30
SaO2 99
Physical Exam
General: Comfortable (Large neck)
HEENT: Normocephalic, Anicteric, Other (Mild left conjunctivitis) and Other (Forehead graft from prior basal cell carcinoma)
Cardiovascular: S1-S2, Regular Rhythm, Murmur (n), Rub (n), Peripheral Edema (n) and Calf Tenderness (n)
Respiratory: Wheeze (n), Crackles (n), Rhonchi (n), Non-Labored Respirations and Other (Bronchial, decreased)
GI: Soft, Non Distended and Non Tender
Neurology: Awake, Alert and No Motor Deficits
Skin: Cyanosis (n), Jaundice (n) and Rash (Multiple basal cell lesions, back, forearms)
Labs/Micro/Reports
Microbiology
01/04/24 18:14 Blood/Venous Blood Culture - Preliminary
No Growth in 24 hours- Final report to follow
01/04/24 16:37 Blood/Venous Blood Culture - Preliminary
No Growth in 24 hours- Final report to follow
01/04/24 18:14 Joint Fluid Body Fluid Culture - Preliminary
No Growth After 18-24 Hours
01/04/24 18:14 Joint Fluid Gram Stain - Preliminary
01/04/24 16:39 Nasal Swab Influenza Types A & B (SHELBY) - Final
Negative for Influenza A & B, NAAT
Negative results must be combined with clinical observations
and patient history.
Nucleic Acid Amplification test (NAAT)performed on the
[employer] platform.
[2024-01-06 09:05] LABS: Blood Urea Nitrogen 14 mg/dl (9-20); Calcium 8.7 mg/dl (8.4-10.2); Carbon Dioxide 27 mmol/L (22-30); Chloride 103 mmol/L (98-107); Estimated Creatinine Clearance > 125 ml/min; Glucose 155 mg/dl (70-99); Potassium 4.5 mmol/L (3.5-5.1); Sodium 134 mmol/L (135-145); eGFR > 60.00
--- NOTE | 2024-01-06 11:54 | W.PN.HOSP.TC ---
Today's Communication/Plan
-
OK for DC today
Assessment / Plan
Assessment / Plan
# COPD exacerbation
-COVID-negative
-Chest x-ray with impression of mildly decreased bilateral lung volumes, mild cardiomegaly
-Negative for influenza A and B
-appreciate pulm
-s/p IV Decadron; will DC on prednisone taper
-procal negative
-nebx prn for sob and wheezing
-oxygenating very well on RA
-Tylenol prn for fever and pain
-Mucinex for cough
-pulmonology consult appreciated - pt will follow up on DC
# left ankle and knee pain likely gout flare
-SIRS 2/2 gout, doubt infection (improvement off abx); gram stain neg
-Fluid shows WBC 75,000 and with positive monosodium urate crystals
-Tylenol as needed for pain
-steroids to treat gout flare, OK to stop colchicine
-PT/OT
# Normocytic anemia likely chronic
-Hemoglobin 10.2
-No active bleeding
-Continue to monitor
#hxt of Basal cell CA
-s/p surgery and graft
-at present Basal cell CA on left shoulder, back, b/l eyes, left arm
-pending insurance to follow up with [facility]
#essential HTN
-BP stable
-lisinopril continued
#DVT prophylaxis
-Lovenox
#CODE status
-full code
Anticipated Discharge: Today
Subjective/Interval History
-
Date of Service: January 06, 2024
feeling well and wants to go home
Objective Data
-
Labs:
Laboratory Results
01/06/24
07:56
WBC 14.2 H
Hgb 9.4 L
Hct 29.1 L
Plt Count 142 D
Sodium 134 L
Potassium 4.5
Chloride 103
Carbon Dioxide 27
BUN 14
Creatinine 0.6 L
Glucose 155 H
Calcium 8.7
Vital Signs:
Vital Signs
Temp Pulse Resp BP Pulse Ox
97.8 F 56 18 103/48 99
01/06/24 07:30 01/06/24 07:30 01/06/24 07:30 01/06/24 07:30 01/06/24 07:30
Review of Systems
-
History Source: Patient
All other systems: Reviewed and negative
Physical Exam
-
General: No Apparent Distress
HEENT: PERRLA
Respiratory: Decreased Breath Sounds and Other (wheezing improved )
Cardiac: Regular Rhythm and S1/S2
GI: Soft and Nontender
Musculoskeletal: No Edema
Skin: Warm and Dry; Negative Rash
Neuro: AO x 3
Psych: Calm
Data Reviewed
-
Diagnostic Radiology: Report Reviewed by me
Labs: Labs Reviewed by me
--- NOTE | 2024-01-06 12:02 | W.DS.TRANS ---
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
-
Discharge Instructions:
Discharge Diagnosis/Procedures chronic obstructive pulmonary disease, acute
exacerbation
Diet Regular
Activity As tolerated
Driving Restrictions As prior to admission
Bathing Restrictions None
Instructions:
Stand-Alone Forms:
Changes to Home Medications: Yes
Discharge Medications:
DC Medications w/original date entered in [employer]
colchicine 0.6 mg tablet 0.6 mg PO DAILY PRN gout 01/04/24
gabapentin 100 mg capsule 200 mg PO DAILY 01/04/24
ibuprofen 200 mg capsule 200 mg PO Q6H PRN mild pain 01/04/24
lisinopril 20 mg tablet 20 mg PO DAILY 01/04/24
albuterol sulfate 90 mcg/actuation aerosol inhaler 2 puff inhalation Q6H PRN shortness of breath or wheezing #6.7 grams 01/06/24
guaifenesin 600 mg tablet, extended release 12 hr 1,200 mg PO Q12 #30 tabs 01/06/24
prednisone 10 mg tablet 10 mg PO DIRECTED #30 tabs 01/06/24
Home Medication Changes
prednisone taper
addition albuterol
mucinex
Pending Results: No
[2024-01-06 12:30] VITALS: BP 106/50
--- NOTE | 2024-01-06 12:34 | CM ---
Patient seen bedside.
IA completed.
Patient lives with cousin in a 2 story home.
Independent prior to admission. Drives.
No PCP in the area, options ist provided.
Hx Blossom in the past, no VN needs at this time.
IMM reviewed.
Pharmacy: [facility]
Plan: home no needs.
[2024-01-06] MEDS: DELTASONE 20 MG PO (13:02)
--- NOTE | 2024-01-06 15:01 | W.DCSUMMARY ---
Discharge Summary
Discharge Data
Date of Admission: 01/04/24
Date of Discharge: 01/06/24
-
Pending Results: No
Hospital Course
Discharging Physician : Dr. Eryn Duran
Disposition : Home
Principal Discharge diagnosis : acute COPD Exacerbation
Hospital Course :
Mr. Sherif Gray is a 68 yo man with hx COPD, recurrent basal cell carcinoma requiring multiple surgeries, 100 pack year smoking history, hx alcohol use (has not drank in 3 weeks), presents to the ER with shortness of breath and cough which
failed to improve on outpatient prednisone. He also complained of left knee pain. Triage vitals T 102.4, P 96, RR 22, SpO2 95%. Labs with WBC 14.5. On exam patient with wheezing and swollen left knee. He was admitted to medicine with Pulmonary
consulting for COPD exacerbation.
Patient was given IV steroids and nebulizers. His procal was negative, no antibiotics given (etiology of fever thought 2/2 gout, see below). Symptoms improved and is discharged on a prednisone taper. He will follow up with Pulmonary as
outpatient. He is prescribed albuterol PRN.
Regarding left knee pain, s/p aspiration in the ER with fluid showing monosodium urate crystals. Symptoms improved with steroids; and prednisone taper as above will continue to treat gout. Fever thought 2/2 gout as it resolved without antibiotics.
Procal negative.
Patient recently moved from [place] and knows to establish with a local PCP. Consider cardiology referral given abnormal EKG (poor R wave progression).
Time spent on discharge was 32 minutes.
Important imaging findings :
CXR 01/04/24
IMPRESSION:
1. � Mildly decreased bilateral lung volumes.
2. � Mild cardiomegaly.
Procedure findings :
Discharge Plan
-
Patient Disposition: Home (Routine Discharge)
Discharge Diagnosis/Procedures: chronic obstructive pulmonary disease, acute exacerbation
Diet: Regular
Activity: As tolerated
Driving Restrictions: As prior to admission
Bathing Restrictions: None
Referrals:
Don Bran MD [Active] -
(High risk for lung cancer
Recommend low-dose lung cancer CT screening
Recommend pulmonary follow-up with PFT, decision on maintenance inhaler therapy (appt in 4-6 weeks))
PRIVATE,PHYSICIAN [Family Provider] - in less than 1 week
Additional Discharge Medication Instructions: Prednisone instructions: Take 40mg (4 tabs) x 3 days; 30mg (3 tabs) x 3 days; 20mg (2 tabs) x 3 days; 10mg (1 tab) x 3 days
You no longer need to take colchicine for gout given you are on prednisone.
Prescriptions:
New
guaifenesin 600 mg Tablet Extended Release 12hr
1,200 mg PO Q12 Qty: 30 0RF
prednisone 10 mg tablet
10 mg PO DIRECTED Qty: 30 0RF
Rx Instructions:
Take 40mg (4 tabs) x 3 days; 30mg (3 tabs) x 3 days; 20mg (2 tabs) x 3 days; 10mg (1 tab) x 3 days
albuterol sulfate 90 mcg/actuation HFA aerosol inhaler
2 puff inhalation Q6H PRN (Reason: shortness of breath or wheezing) Qty: 6.7 0RF
Continued
ibuprofen 200 mg Capsule
200 mg PO Q6H PRN (Reason: mild pain)
lisinopril 20 mg Tablet
20 mg PO DAILY
gabapentin 100 mg Capsule
200 mg PO DAILY
colchicine 0.6 mg Tablet
0.6 mg PO DAILY PRN (Reason: gout)
Discharge Orders:
Discharge Patient (As Directed); Ordered 01/06/24
Ordered By: Eryn Duran
Discharge Date and Time
Discharge Date/Time: 01/06/24 14:59
== END 2024-01-06 14:59 | disposition home or self-care (01) | DRG 191 ==
LOC: 4 WEST ACU 20:19
PROVIDERS: Registered Nurse; ADMITTING PHYSICIAN Internal Medicine; ATTENDING PHYSICIAN Student in an Organized Health Care Education/Training Program; EMERGENCY PHYSICIAN Emergency Medicine; OTHER PHYSICIAN Internal Medicine Critical Care Medicine; OTHER PHYSICIAN Internal Medicine Rheumatology
DX: J44.1 Chronic obstructive pulmonary disease with (acute) exacerbation (principal); R65.10 Systemic inflammatory response syndrome (SIRS) of non-infectious origin without acute organ dysfunction; I10 Essential (primary) hypertension; C44.619 Basal cell carcinoma of skin of left upper limb, including shoulder; M10.9 Gout, unspecified; D64.9 Anemia, unspecified; F10.10 Alcohol abuse, uncomplicated; M06.4 Inflammatory polyarthropathy; M25.562 Pain in left knee; M25.572 Pain in left ankle and joints of left foot; Z11.52 Encounter for screening for COVID-19; Z88.6 Allergy status to analgesic agent; Z87.891 Personal history of nicotine dependence
CPT/HCPCS: 20610; 71046; 80048; 80053; 81003; 82945; 83605; 83880; 84145; 85025; 87015; 87040; 87070; 87205; 87502; 87811; 89051; 89060; 93005; 94640; 96361; 96374; 97162; 99285

== ENCOUNTER 2024-02-14 09:50 | Emergency (ER) | payer OTHER, SELFPAY ==
[2024-02-14 09:57] VITALS: BP 166/79
--- NOTE | 2024-02-14 10:42 | ED.GENMED ---
History of Present Illness
General
Chief Complaint: Musculo-Skeletal Complaint
Source: patient
Exam Limitations: none
Time Seen by Provider: 02/14/24 10:21
Nursing documentation reviewed up to this point in time: agreed with
Travel History
Have you had any contact with someone who has COVID-19?: No
Do you have any symptoms of coronavirus? Fever > 100 degrees, chills, cough, shortness of breath, sore throat, loss of taste or smell, muscle aches, or headache?: No
History of Present Illness
History of Present Illness:
Patient is a 68-year-old male with past medical history of COPD former smoker alcohol abuse current drinker last drank beer yesterday, gout, basal cell carcinoma presents to the ER for evaluation of left knee pain which started yesterday after
drinking. He believes he is having a gout flare. He denies any redness to the knee but does complain of discomfort. He is able to bear weight he has a history of multiple basal cell carcinomas and has been evaluated by [facility] in his past along
with [facility] for basal cell in the lower eyelids. He complains of burning and redness to a chronic wound to his right forearm.
He reports he is currently homeless living in the [facility] but does shower at his friend's house in [facility]. He has an appoint with [facility] tomorrow for evaluation as a new patient for his skin wounds and history of basal cell carcinoma.
patient presents to the ER primarily complaining of left knee pain and evaluation of right arm wound. He denies any fever or chills. He does not feel ill.
He was just admitted January 03 and discharged January 05 for COPD exacerbation. He was also found to have a gout flare on the left that time. During ER visit prior to that admission patient's left knee was tapped which did show monosodium urate
crystals and patient was discharged on steroids.
Phy Exam
General Physical Exam
General Presentation: no apparent distress
General age: appears stated age
General Skin: warm and dry
General Habitus: elderly
General Mental: alert
General Hydration: appears well hydrated
Eye Exam
Eye Exam: PERRL, EOMI and other (Patient's lower eyelids appeared sunken red inflamed skin(chronic as per patient) history of basal cell carcinoma)
Eye Exam General: PERRL: bilateral and EOM intact: bilateral
Pupil Exam: Bilateral: round and reactive
Cardiovascular Exam
Cardiovascular Exam: no murmur and normal peripheral pulses
Pulmonary Exam
Pulmonary Exam: lungs clear and no respiratory distress
Neurological Exam
Neurological Exam: alert and oriented x3
Musculoskeletal Exam
Musculoskeletal Exam: other (Left knee is mildly swollen however good range of motion no erythema there is no warmth to the knee strong distal pulses no calf tenderness or swelling right dorsal forearm with old appearing scabbed over wound very
minimally red no drainage)
Skin Exam
Skin Exam: normal color and warm/dry
Psychiatric Exam
Psychiatric Exam: normal mood/affect
Course
Vital Signs
Initial and Last Documented VS:
Initial Vital Signs
Temp Pulse Resp BP Pulse Ox
97.7 F 97 17 166/79 98
02/14/24 09:57 02/14/24 09:57 02/14/24 09:57 02/14/24 09:57 02/14/24 09:57
Last Documented Vital Signs
Temp Pulse Resp BP Pulse Ox
97.7 F 97 17 166/79 98
02/14/24 09:57 02/14/24 09:57 02/14/24 09:57 02/14/24 09:57 02/14/24 09:57
MDM/Problems Addressed
MDM/Problems Addressed:
As discussed patient is a 68-year-old male who presented to the ER complaining of left knee pain and for evaluation of right wound to forearm. He has gout and during last admission this left knee was drained which showed monosodium urate crystals.
Patient does have colchicine as needed. Symptoms are typical for gout flareup. Patient drank alcohol yesterday drinks almost daily and this occurred after. There is no evidence however of infection on exam there is no redness warmth. He denies
any fevers and is afebrile here he is in no acute distress. Will DC on steroid taper will give IM dose of Decadron now.
Patient also has chronic wounds and chronic basal cell carcinoma. Though he is currently homeless and does have assistance with friends in [place] and has been eating and showering he has an appointment with Francisco Smith tomorrow for treatment and
evaluation of these wounds and cancer. Will DC on Keflex for minimally red chronic appearing right forearm wound .
Patient overall is in no acute distress he is well-kept and has good hygiene and again as though he states he is living in the [facility] in a tent he gets food from [employer] cooks for himself and does shower at his friend's house in [place]. I
did offer patient more information on shelters but he declines. He is also currently followed at [facility] clinic.
I did review with patient the importance of getting to his Francisco Smith appointment tomorrow patient was given a dose of IM Decadron here along with An prescriptions he requests be sent to [facility] pharmacy in [place].
*Critical Care Note
Total Time (30-74mins, 75-104mins- exclusive of procedures): Not Applicable
ED Attending Note
-
Portions of this chart may have been created with voice recognition software.� Occasional wrong word or��sound alike� substitutions may have occurred due to the inherent limitations of voice recognition software.
Discharge Plan
Departure
Patient Disposition: Home (Routine Discharge)
Date of Disposition: 02/14/24
Time of Disposition: 11:28
Patient with high blood pressure during this ER visit?: Yes
Condition: Fair
Covid-19: Not Applicable
Discharge Problem:
Gout, skin wound
Instructions: Gout (DC)
Prescriptions:
New
prednisone 10 mg Tablet
See Rx Instructions .ROUTE .COMPLEX Qty: 30 0RF
Rx Instructions:
Take By Mouth:
40 mg daily x3 days, 30 mg daily x3 days,
20 mg daily x3 days, 10 mg daily x3 days.
cephalexin 500 mg capsule
500 mg PO Q6H Qty: 28 0RF
No Action
ibuprofen 200 mg Capsule
200 mg PO Q6H PRN (Reason: mild pain)
lisinopril 20 mg Tablet
20 mg PO DAILY
gabapentin 100 mg Capsule
200 mg PO DAILY
colchicine 0.6 mg Tablet
0.6 mg PO DAILY PRN (Reason: gout)
guaifenesin 600 mg Tablet Extended Release 12hr
1,200 mg PO Q12 Qty: 30 0RF
prednisone 10 mg tablet
10 mg PO DIRECTED Qty: 30 0RF
Rx Instructions:
Take 40mg (4 tabs) x 3 days; 30mg (3 tabs) x 3 days; 20mg (2 tabs) x 3 days; 10mg (1 tab) x 3 days
albuterol sulfate 90 mcg/actuation HFA aerosol inhaler
2 puff inhalation Q6H PRN (Reason: shortness of breath or wheezing) Qty: 6.7 0RF
Referrals:
UNKNOWN - PT DOES,NOT KNOW [Family Provider] -
Activity Restrictions/Additional Instructions:
As discussed 2 prescriptions were sent to your pharmacy, once steroid taper for gout flareup and second 1 is antibiotics for right forearm wound. Follow-up with Francisco Smith tomorrow for further evaluation of skin cancer, wound. Follow-up with family
practice clinic in the next several days for reevaluation of your left knee pain. Return if any worsening of symptoms including increasing left knee pain redness swelling difficulty ambulating fevers worsening redness or drainage from right forearm
wound.
Discharge Date and Time
Print Language: AMHARIC
[2024-02-14] MEDS: KEFLEX 500 MG PO (11:39)
[2024-02-14] MEDS: DECADRON 10 MG IM (11:39)
== END 2024-02-14 11:48 | disposition home or self-care (01) ==
LOC: EMR 09:50
PROVIDERS: EMERGENCY PHYSICIAN Emergency Medicine
DX: M10.9 Gout, unspecified (principal); S40.921A Unspecified superficial injury of right upper arm, initial encounter; X58.XXXA Exposure to other specified factors, initial encounter; M25.562 Pain in left knee; I10 Essential (primary) hypertension; Z59.02 Unsheltered homelessness
CPT/HCPCS: 99284; 96372

== ENCOUNTER → 2024-03-03 07:41 | Outpatient (REF) | payer OTHER, SELFPAY ==
[2024-03-03 10:20] LABS: % Basophils 0.2 % (0-2); % Immature Granulocytes 0.5 % (0-0.5); % Lymphocytes 23.5 % (20.5-51.1); % Monocytes 9.3 % (1.7-9.3); % Neutrophils 65.5 % (42.2-75.2); Absolute Eosinophils 0.1 10^3/uL (0-0.7); Absolute Lymphocytes 2.1 10^3/uL (1.2-3.4); Absolute Monocytes 0.8 10^3/uL (0.1-0.6); Absolute Neutrophils 5.8 10^3/uL (1.4-6.5); Hematocrit 34.6 % (39.0-52.0); Hemoglobin 10.7 g/dL (13.0-18.0); Mean Corp Hgb Conc. 30.9 g/dL (33.0-37.0); Mean Corpuscular Hgb 27.9 pg (27.0-31.0); Mean Corpuscular Volume 90.1 fL (80.0-94.0); Mean Platelet Volume 12.4 fL (7.4-10.4); Nucleated Red Blood Cells % 0.6 % (-); Platelet Count 133 10^3/uL (130-400); Red Blood Cell Count 3.84 10^6/uL (4.70-6.10); Red Cell Dist. Width 15.2 % (11.5-14.5); White Blood Cell Count 8.8 10^3/uL (4.8-10.8)
[2024-03-03 10:21] LABS: ALT (SGPT) 20 U/L (0-50); AST (SGOT) 25 U/L (17-59); Albumin 3.6 g/dl (3.5-5.0); Alkaline Phosphatase 88 U/L (38-126); Blood Urea Nitrogen 12 mg/dl (9-20); Calcium 9.1 mg/dl (8.4-10.2); Carbon Dioxide 31 mmol/L (22-30); Chloride 101 mmol/L (98-107); Glucose 124 mg/dl (70-99); HDL Cholesterol 48 mg/dl; LDL Cholesterol, Calculated 95 mg/dl; Potassium 4.5 mmol/L (3.5-5.1); Sodium 138 mmol/L (135-145); Total Bilirubin 0.9 mg/dl (0.2-1.3); Total Cholesterol 156 mg/dl (50-199); Total Protein 6.7 g/dl (6.3-8.2); Triglyceride 68 mg/dl (10-149); Uric Acid 7.5 mg/dl (3.5-8.5); Very Low Density Lipoprotein 13 mg/dl (0-30); eGFR > 60.00
[2024-03-03 12:02] LABS: Glycohemoglobin (HgbA1c) 5.8 % (4.0-5.6)
== END ==
LOC: HWLAB 07:41
PROVIDERS: ATTENDING PHYSICIAN Student in an Organized Health Care Education/Training Program
DX: R29.898 Other symptoms and signs involving the musculoskeletal system (principal); Z68.30 Body mass index [BMI] 30.0-30.9, adult
CPT/HCPCS: 36415; 80053; 80061; 83036; 84550; 85025

== ENCOUNTER → 2024-03-07 07:28 | Outpatient (REF) | payer OTHER, SELFPAY | LOC: EMG 07:28 | PROVIDERS: ATTENDING PHYSICIAN Student in an Organized Health Care Education/Training Program | DX: R29.898 Other symptoms and signs involving the musculoskeletal system (principal); R20.0 Anesthesia of skin | CPT/HCPCS: 95886; 95909 ==

== ENCOUNTER 2024-03-20 08:45 | Emergency (ER) | payer OTHER, SELFPAY ==
[2024-03-20 08:49] VITALS: BP 150/91
--- NOTE | 2024-03-20 11:03 | ED.GENMED ---
History of Present Illness
General
Chief Complaint: Musculo-Skeletal Complaint
Source: patient
Exam Limitations: none
Time Seen by Provider: 03/20/24 09:32
Nursing documentation reviewed up to this point in time: agreed with
Travel History
Have you had any contact with someone who has COVID-19?: No
Do you have any symptoms of coronavirus? Fever > 100 degrees, chills, cough, shortness of breath, sore throat, loss of taste or smell, muscle aches, or headache?: No
History of Present Illness
History of Present Illness:
68-year-old male presents to the ER for evaluation of right great toe pain. He believes this is a gout flare. He denies any fevers. Denies any injury .
he is on allopurinol but has not had his colchicine in months. He has a history of basal cell cancer to face arms eyes. He is currently homeless living in the [facility] however does shower at [facility]. He is however followed at [facility] and
recently had a PET scan and is due to see them tomorrow.
Review of Systems
Review of Systems
Allergies reviewed?: Yes
All Other Systems: ROS reviewed and negative except as documented in HPI and ROS
Constitutional: Reports no symptoms; Denies fever, fatigue or chills
Cardiac: Reports no symptoms
ABD/GI: Reports no symptoms
Musculoskeletal: Reports other (pain to right great foot /toe region )
Psychiatric: Reports no symptoms
Phy Exam
General Physical Exam
General Presentation: no apparent distress
General age: appears stated age
General Skin: warm and dry
General Habitus: elderly
General Mental: alert
General Hydration: appears well hydrated
Neurological Exam
Neurological Exam: alert and oriented x3
Musculoskeletal Exam
Musculoskeletal Exam: other (Right lower extremity strong pulses obvious swelling very minimally red and very tender to light touch to right great MTP joint)
Skin Exam
Skin Exam: normal color, warm/dry and other (Multiple skin lesions throughout (patient with basal cell cancer ) face arms eyes ears)
Psychiatric Exam
Psychiatric Exam: normal mood/affect
Course
Orders/Labs/Results
Orders:
Orders
03/20/24 11:13
Prednisone [Deltasone] 50 mg PO NOW STA
Vital Signs
Initial and Last Documented VS:
Initial Vital Signs
Temp Pulse Resp BP Pulse Ox
99.0 F 72 20 150/91 98
03/20/24 08:49 03/20/24 08:49 03/20/24 08:49 03/20/24 08:49 03/20/24 08:49
Last Documented Vital Signs
Temp Pulse Resp BP Pulse Ox
99.0 F 72 20 150/91 98
03/20/24 08:49 03/20/24 08:49 03/20/24 08:49 03/20/24 08:49 03/20/24 08:49
Predatory Animal Exterminator consulted with Physician
Predatory Animal Exterminator consulted with physician?: Yes
Name of Physician Consulted: Medardo
MDM/Problems Addressed
Differential Diagnosis Includes:
Not limited to cellulitis, gout
MDM/Problems Addressed:
Symptoms are consistent with gout. Patient does have a history of gout and clinical exam is consistent with gout patient is very tender to even light touch over the right first and patient is on allopurinol however has not had colchicine in 2 to 3
months. He has a beer drinker daily. Will DC on steroids. Patient is following [facility] clinic.
Chronic conditions affecting care:
Gout daily drinker
*Critical Care Note
Total Time (30-74mins, 75-104mins- exclusive of procedures): Not Applicable
ED Attending Note
-
Portions of this chart may have been created with voice recognition software.� Occasional wrong word or��sound alike� substitutions may have occurred due to the inherent limitations of voice recognition software.
Discharge Plan
Departure
Patient Disposition: Home (Routine Discharge)
Date of Disposition: 03/20/24
Time of Disposition: 11:22
Patient with high blood pressure during this ER visit?: Yes
Condition: Fair
Covid-19: Not Applicable
Discharge Problem:
Gout
Instructions: Gout ED
Prescriptions:
New
prednisone 10 mg Tablet
See Rx Instructions .ROUTE .COMPLEX Qty: 30 0RF
Rx Instructions:
Take By Mouth:
40 mg daily x3 days, 30 mg daily x3 days,
20 mg daily x3 days, 10 mg daily x3 days.
No Action
ibuprofen 200 mg Capsule
200 mg PO Q6H PRN (Reason: mild pain)
lisinopril 20 mg Tablet
20 mg PO DAILY
gabapentin 100 mg Capsule
200 mg PO DAILY
colchicine 0.6 mg Tablet
0.6 mg PO DAILY PRN (Reason: gout)
guaifenesin 600 mg Tablet Extended Release 12hr
1,200 mg PO Q12 Qty: 30 0RF
prednisone 10 mg tablet
10 mg PO DIRECTED Qty: 30 0RF
Rx Instructions:
Take 40mg (4 tabs) x 3 days; 30mg (3 tabs) x 3 days; 20mg (2 tabs) x 3 days; 10mg (1 tab) x 3 days
albuterol sulfate 90 mcg/actuation HFA aerosol inhaler
2 puff inhalation Q6H PRN (Reason: shortness of breath or wheezing) Qty: 6.7 0RF
prednisone 10 mg Tablet
See Rx Instructions .ROUTE .COMPLEX Qty: 30 0RF
Rx Instructions:
Take By Mouth:
40 mg daily x3 days, 30 mg daily x3 days,
20 mg daily x3 days, 10 mg daily x3 days.
cephalexin 500 mg capsule
500 mg PO Q6H Qty: 28 0RF
Referrals:
PRIVATE,PHYSICIAN [Family Provider] -
Activity Restrictions/Additional Instructions:
You were given first dose of steroids here in the ER and a prescription for steroid taper was sent to her pharmacy take as directed. Follow-up with family practice clinic in the next several days and return if any worsening of symptoms.
Interventions
Interventions:
*Risk Screen - Suicide Last Done: 03/20/24 09:55
*General Assessment Last Done: 03/20/24 09:55
*Neglect/Abuse Screening Last Done: 03/20/24 09:55
ED-Musculoskeletal Assessment Last Done: 03/20/24 09:55
Discharge Date and Time
Print Language: NEPALESE
[2024-03-20] MEDS: DELTASONE 50 MG PO (11:38)
== END 2024-03-20 12:06 | disposition home or self-care (01) ==
LOC: EMR 08:45
PROVIDERS: EMERGENCY PHYSICIAN Emergency Medicine
DX: M10.9 Gout, unspecified (principal); Z59.02 Unsheltered homelessness; Z85.828 Personal history of other malignant neoplasm of skin
CPT/HCPCS: 99282

== ENCOUNTER → 2024-04-29 15:57 | Outpatient (REF) | payer MEDICARE, SELFPAY ==
[2024-04-29 16:57] LABS: % Basophils 0.4 % (0-2); % Eosinophils 1.9 % (0-6); % Immature Granulocytes 0.2 % (0-0.5); % Lymphocytes 30.2 % (20.5-51.1); % Monocytes 10.1 % (1.7-9.3); % Neutrophils 57.2 % (42.2-75.2); Absolute Eosinophils 0.2 10^3/uL (0-0.7); Absolute Lymphocytes 2.4 10^3/uL (1.2-3.4); Absolute Monocytes 0.8 10^3/uL (0.1-0.6); Absolute Neutrophils 4.6 10^3/uL (1.4-6.5); Hemoglobin 11.8 g/dL (13.0-18.0); Mean Corp Hgb Conc. 33.7 g/dL (33.0-37.0); Mean Corpuscular Hgb 28.1 pg (27.0-31.0); Mean Corpuscular Volume 83.3 fL (80.0-94.0); Mean Platelet Volume 11.6 fL (7.4-10.4); Nucleated Red Blood Cells % 1.4 % (-); Platelet Count 126 10^3/uL (130-400); Red Cell Dist. Width 15.2 % (11.5-14.5)
[2024-04-29 17:22] LABS: ALT (SGPT) 18 U/L (0-50); AST (SGOT) 30 U/L (17-59); Albumin 4.3 g/dl (3.5-5.0); Alkaline Phosphatase 94 U/L (38-126); Blood Urea Nitrogen 19 mg/dl (9-20); Calcium 9.1 mg/dl (8.4-10.2); Carbon Dioxide 29 mmol/L (22-30); Chloride 101 mmol/L (98-107); Glucose 130 mg/dl (70-99); Potassium 4.5 mmol/L (3.5-5.1); Sodium 137 mmol/L (135-145); Total Protein 7.1 g/dl (6.3-8.2); eGFR > 60.00
== END ==
LOC: REG 15:57
PROVIDERS: ATTENDING PHYSICIAN Internal Medicine Hematology & Oncology
DX: C44.91 Basal cell carcinoma of skin, unspecified (principal)
CPT/HCPCS: 36415; 80053; 85025

== ENCOUNTER 2024-06-08 12:41 | Emergency (ER) | payer MEDICARE, SELFPAY ==
[2024-06-08 12:52] VITALS: BP 143/78
[2024-06-08 14:18] VITALS: BP 120/79
--- NOTE | 2024-06-08 14:18 | ED.GENMED ---
History of Present Illness
General
Chief Complaint: Back Pain
Source: patient
Time Seen by Provider: 06/08/24 14:10
History of Present Illness
History of Present Illness:
69-year-old male with past medical history of hypertension and skin cancer presenting to the emergency department for evaluation after he was picking up a log for some firewood when he felt pain in his left lower back which persisted into this
morning. Patient states that he was making a campfire at the time of injury. He notes that he has a chronic issue with back pain and has received nerve injections in the back due to the pain previously. Patient states his pain does seem a little
bit different as it is not radiating down his left leg. Patient denies any fevers, chills, rigors, bowel or urinary incontinence, saddle anesthesia, history of IV drug abuse, falls or traumatic injuries. Patient currently on medication for his
history of melanoma and squamous cell carcinoma. Of note, patient is currently homeless but does receive geriatric social worker care through [facility]. Patient stating he is not drug-seeking but merely looking for some relief as he has been taking some
Motrin with minimal relief.
Past History
Past History
ED Past Medical History: Cancer and HTN
ED Past Surgical History: Other
Social History
Tobacco: Non-smoker
Alcohol: None
Drug: None
Personal: Single
Living: homeless
Employment: Retired
Review of Systems
Review of Systems
All Other Systems: ROS reviewed and negative except as documented in HPI and ROS
Phy Exam
Physical Exam
Physical Exam:
GENERAL: Alert , in no apparent distress
EYE: conjunctiva clear
Head: Normocephalic atraumatic
NECK: Supple,
ENT: mmm.
LUNGS: no acute respiratory distress
NEUROLOGICAL: Alert and oriented
Back: Tenderness within the left paralumbar region. No overlying skin changes. Patient allows for range of motion but does have pain with movement
SKIN: Warm and dry, lesions on the right forearm, left jaw, upper back and left lateral nose are chronic per patient
MUSCULOSKELETAL: well perfused.
PSYCH: Normal and appropriate interaction.
Scores
Heart Failure Risk
Heart Failure Risk Score: Not Applicable
Heart Score for Chest Pain Patients
STEMI patient?: Not applicable
Withdrawal Assessment of Alcohol
Withdrawal Assessment Completed?: Not applicable
Course
Orders/Labs/Results
Orders:
Orders
06/08/24 14:16
Diazepam [Valium] 5 mg PO NOW STA
Ibuprofen [Motrin] 600 mg PO NOW STA
Lidocaine [Lidocaine 4% Patch] 1 patch TOPICAL NOW STA
Apply Lidocaine patch(s) to:: left lower back
CR Lumbar Spine Comp Min 4 Vw* Urgent
Comment:
Reason For Exam: left lumbar pain
Vital Signs
Initial and Last Documented VS:
Initial Vital Signs
Temp Pulse Resp BP Pulse Ox
98.1 F 62 16 143/78 98
06/08/24 12:52 06/08/24 12:52 06/08/24 12:52 06/08/24 12:52 06/08/24 12:52
Last Documented Vital Signs
Temp Pulse Resp BP Pulse Ox
98.1 F 69 16 120/79 97
06/08/24 12:52 06/08/24 14:18 06/08/24 14:18 06/08/24 14:18 06/08/24 14:18
MDM/Problems Addressed
Differential Diagnosis Includes:
Mechanical/muscular back pain, sciatica/radiculopathy, minimal concern for any infectious etiology as well as acute neurological compromise
MDM/Problems Addressed:
69-year-old male presenting to the emergency department for evaluation of left lower back pain that began last night while he was cutting up firewood. Patient drove to cousin's house who brought him to the ER for further evaluation. Patient's
symptoms seem to be reproducible with movement as well as palpation. Given the mechanism I suspect a muscular etiology is most likely. Will obtain x-ray to further evaluate. Pain control with Motrin, Valium and topical Lidoderm.
*Radiology
Radiology exam reviewed: preliminary read by ED provider (degenerative changes)
*Pulse Oximetry
Patient hypoxic: no
*Critical Care Note
Total Time (30-74mins, 75-104mins- exclusive of procedures): Not Applicable
Patient Management
Escalation/DeEscalation of care consider admission/obs:
Patients XR shows degenerative changes. Mild improvement with meds. Feels well to go home. Aware of return precautions to the ER
ED Attending Note
-
Portions of this chart may have been created with voice recognition software.� Occasional wrong word or��sound alike� substitutions may have occurred due to the inherent limitations of voice recognition software.
Discharge Plan
Departure
Patient Disposition: Home (Routine Discharge)
Date of Disposition: 06/08/24
Time of Disposition: 15:25
Patient with high blood pressure during this ER visit?: No
Discharge Problem:
Low back pain
Instructions: Low Back Pain (DC)
Prescriptions:
New
methylprednisolone [Medrol (Dennis)] 4 mg tablets,dose pack
4 mg PO DIRECTED Qty: 21 0RF
diazepam [Valium] 5 mg tablet
5 mg PO BID PRN (Reason: muscle spasm) Qty: 8 0RF
No Action
ibuprofen 200 mg Capsule
200 mg PO Q6H PRN (Reason: mild pain)
lisinopril 20 mg Tablet
20 mg PO DAILY
gabapentin 100 mg Capsule
200 mg PO DAILY
colchicine 0.6 mg Tablet
0.6 mg PO DAILY PRN (Reason: gout)
guaifenesin 600 mg Tablet Extended Release 12hr
1,200 mg PO Q12 Qty: 30 0RF
prednisone 10 mg tablet
10 mg PO DIRECTED Qty: 30 0RF
Rx Instructions:
Take 40mg (4 tabs) x 3 days; 30mg (3 tabs) x 3 days; 20mg (2 tabs) x 3 days; 10mg (1 tab) x 3 days
albuterol sulfate 90 mcg/actuation HFA aerosol inhaler
2 puff inhalation Q6H PRN (Reason: shortness of breath or wheezing) Qty: 6.7 0RF
prednisone 10 mg Tablet
See Rx Instructions .ROUTE .COMPLEX Qty: 30 0RF
Rx Instructions:
Take By Mouth:
40 mg daily x3 days, 30 mg daily x3 days,
20 mg daily x3 days, 10 mg daily x3 days.
cephalexin 500 mg capsule
500 mg PO Q6H Qty: 28 0RF
prednisone 10 mg Tablet
See Rx Instructions .ROUTE .COMPLEX Qty: 30 0RF
Rx Instructions:
Take By Mouth:
40 mg daily x3 days, 30 mg daily x3 days,
20 mg daily x3 days, 10 mg daily x3 days.
Referrals:
Richard Wilson MD, Resident [Family Provider] -
Interventions
Interventions:
*Risk Screen - Suicide Last Done: 06/08/24 15:45
*General Assessment Last Done: 06/08/24 15:45
*Neglect/Abuse Screening Last Done: 06/08/24 15:45
*Nursing Disposition Last Done: 06/08/24 15:45
ED-Musculoskeletal Assessment Last Done: 06/08/24 14:30
Discharge Date and Time
Discharge Date/Time: 06/08/24 16:06
Print Language: TOGOLESE
[2024-06-08] MEDS: MOTRIN 600 MG PO (14:32)
[2024-06-08] MEDS: LIDOCAINE 4% PATCH 1 PATCH TOPICAL (14:32)
[2024-06-08] MEDS: VALIUM 5 MG PO (14:32)
== END 2024-06-08 16:06 | disposition home or self-care (01) ==
LOC: EMR 12:41
PROVIDERS: EMERGENCY PHYSICIAN Student in an Organized Health Care Education/Training Program; FAMILY PHYSICIAN Student in an Organized Health Care Education/Training Program
DX: M54.50 Low back pain, unspecified (principal); I10 Essential (primary) hypertension
CPT/HCPCS: 99283; 72110

== ENCOUNTER → 2024-08-25 10:44 | Outpatient (REF) | payer MEDICARE, SELFPAY | LOC: HWRAD 10:44 | DX: M10.9 Gout, unspecified (principal) | CPT/HCPCS: 73620 ==

== ENCOUNTER 2025-01-11 09:26 | Emergency (ER) | payer MEDICARE, SELFPAY ==
[2025-01-11 09:27] VITALS: BP 118/68
[2025-01-11 09:40] VITALS: BMI 32.2
--- NOTE | 2025-01-11 09:45 | EDRN ---
Dr. Henry took down surgical dressing from R upper arm and placed surgilube to bleeding area then mesh dressing then surgilube, area then dressed by this RN w/ ABD then kerlix then katie wrap w/ pressure.
--- NOTE | 2025-01-11 09:56 | ED.GENMED ---
History of Present Illness
General
Chief Complaint: Post Operative Problem(s)
Source: patient
Exam Limitations: none
Time Seen by Provider: 01/11/25 09:34
Nursing documentation reviewed up to this point in time: agreed with
History of Present Illness
History of Present Illness:
69-year-old male presents emergency department due to bleeding from a surgical site on his right upper arm. He had surgery at [facility] yesterday, and his surgical site on his right upper arm has been bleeding through the dressing. He states he
has basal cell carcinoma, and had it removed at multiple sites.
Past History
Past History
ED Past Medical History: Cancer and HTN
ED Past Surgical History: Other
Social History
Tobacco: Non-smoker
Alcohol: None
Drug: None
Personal: Single
Living: homeless
Employment: Retired
Review of Systems
Review of Systems
Allergies reviewed?: Yes
All Other Systems: Not applicable
Constitutional: Reports no symptoms
EENT: Reports no symptoms
Respiratory: Reports no symptoms
Cardiac: Reports no symptoms
ABD/GI: Reports no symptoms
: Reports no symptoms
Musculoskeletal: Reports no symptoms
Skin: Reports other (Bleeding wound right upper arm, dressings in place on right forearm and upper back)
Neurological: Reports no symptoms
Endocrine: Reports no symptoms
Hematologic/Lymphatic: Reports bruising
Psychiatric: Reports no symptoms
Phy Exam
Physical Exam
Physical Exam:
Physical Exam
General: no apparent distress, not acutely ill
Neck: supple. no meningeal signs. normal posterior pharynx
Heart: equal radial pulses.
HEENT: Pupils equal round reactive to light, EOMI
Lungs: no acute respiratory distress. clear bilaterally
Abdomen: not tender. no CVAT
Neuro: alert and oriented. no focal neurological deficits
Skin: no rash, bleeding oozing 5 cm x 5 cm wound right upper arm
Psychiatric: well kept. interactive and cooperative
Extremities: no edema. no calf tenderness. negative homans. good distal pulses
Course
Orders/Labs/Results
Orders:
Orders
01/11/25 09:54
IV Insert/Care/Rem.- Treatment PRN
PTT Urgent
Prothrombin Time Urgent
01/11/25 09:55
Complete Blood Count/With Diff Urgent
Vital Signs
Initial and Last Documented VS:
Initial Vital Signs
Temp Pulse Resp BP Pulse Ox
98.0 F 74 18 118/68 95
01/11/25 09:27 01/11/25 09:27 01/11/25 09:27 01/11/25 09:27 01/11/25 09:27
Last Documented Vital Signs
Temp Pulse Resp BP Pulse Ox
98.0 F 74 18 118/68 95
01/11/25 09:27 01/11/25 09:27 01/11/25 09:27 01/11/25 09:27 01/11/25 09:27
MDM/Problems Addressed
Differential Diagnosis Includes:
Blood dyscrasia, postoperative bleeding
MDM/Problems Addressed:
69-year-old male with postoperative bleeding, controlled with pressure dressing, Surgifoam and Surgicel. Prior to evaluation of patient's labs, patient left without discharge information. Call placed to patient, but he did not answer. Plan was to
check patient's CBC and PT/INR/PTT, as patient stated that he often bleeds longer, and has received vitamin K shots in the past. Patient was made aware of this plan, but left without notice.
Chronic conditions affecting care: HTN
Acute Exacerbation and/or Progression of Chronic Illness: Cancer (Basal cell skin carcinoma)
*Pulse Oximetry
Patient hypoxic: no
*Critical Care Note
Total Time (30-74mins, 75-104mins- exclusive of procedures): Not Applicable
Patient Management
Social determinants of health affecting care: Living situation
Escalation/DeEscalation of care consider admission/obs:
Admit not indicated
ED Attending Note
-
Portions of this chart may have been created with voice recognition software.� Occasional wrong word or��sound alike� substitutions may have occurred due to the inherent limitations of voice recognition software.
Discharge Plan
Departure
Patient Disposition: Home (Routine Discharge)
Date of Disposition: 01/11/25
Time of Disposition: 11:01
Patient with high blood pressure during this ER visit?: No
Condition: Good
Discharge Problem:
Post-operative hemorrhage
Instructions: Bleeding After Surgery
Prescriptions:
No Action
ibuprofen 200 mg Capsule
200 mg PO Q6H PRN (Reason: mild pain)
lisinopril 20 mg Tablet
20 mg PO DAILY
gabapentin 100 mg Capsule
200 mg PO DAILY
colchicine 0.6 mg Tablet
0.6 mg PO DAILY PRN (Reason: gout)
guaifenesin 600 mg Tablet Extended Release 12hr
1,200 mg PO Q12 Qty: 30 0RF
prednisone 10 mg tablet
10 mg PO DIRECTED Qty: 30 0RF
Rx Instructions:
Take 40mg (4 tabs) x 3 days; 30mg (3 tabs) x 3 days; 20mg (2 tabs) x 3 days; 10mg (1 tab) x 3 days
albuterol sulfate 90 mcg/actuation HFA aerosol inhaler
2 puff inhalation Q6H PRN (Reason: shortness of breath or wheezing) Qty: 6.7 0RF
prednisone 10 mg Tablet
See Rx Instructions .ROUTE .COMPLEX Qty: 30 0RF
Rx Instructions:
Take By Mouth:
40 mg daily x3 days, 30 mg daily x3 days,
20 mg daily x3 days, 10 mg daily x3 days.
cephalexin 500 mg capsule
500 mg PO Q6H Qty: 28 0RF
prednisone 10 mg Tablet
See Rx Instructions .ROUTE .COMPLEX Qty: 30 0RF
Rx Instructions:
Take By Mouth:
40 mg daily x3 days, 30 mg daily x3 days,
20 mg daily x3 days, 10 mg daily x3 days.
methylprednisolone [Medrol (Dennis)] 4 mg tablets,dose pack
4 mg PO DIRECTED Qty: 21 0RF
diazepam [Valium] 5 mg tablet
5 mg PO BID PRN (Reason: muscle spasm) Qty: 8 0RF
Referrals:
UNKNOWN - PT NOT,INTERVIEWE [Unknown Provider] -
Interventions
Interventions:
*Risk Screen - Suicide Last Done: 01/11/25 09:40
*General Assessment Last Done: 01/11/25 09:40
*Neglect/Abuse Screening Last Done: 01/11/25 09:40
*ED- Fall Risk Assessment Last Done: 01/11/25 09:40
*ED COVID-19 Vaccine History Last Done: 01/11/25 09:40
ED-Skin Assessment Last Done: 01/11/25 09:40
Discharge Date and Time
Print Language: JAPANESE
--- NOTE | 2025-01-11 11:00 | EDRN ---
This RN went in to start IV and draw bloods as ordered and room was empty. Pt was no longer in room.
--- NOTE | 2025-01-11 11:07 | EDRN ---
vice president of development notified at this time pt left w/out notice AMA.
== END 2025-01-11 11:06 | disposition left against medical advice (07) ==
LOC: EMR 09:26
PROVIDERS: EMERGENCY PHYSICIAN Emergency Medicine
DX: L76.21 Postprocedural hemorrhage of skin and subcutaneous tissue following a dermatologic procedure (principal); Y83.8 Other surgical procedures as the cause of abnormal reaction of the patient, or of later complication, without mention of misadventure at the time of the procedure; C44.612 Basal cell carcinoma of skin of right upper limb, including shoulder; I10 Essential (primary) hypertension; Z53.29 Procedure and treatment not carried out because of patient's decision for other reasons
CPT/HCPCS: 99282

== ENCOUNTER → 2025-05-01 10:33 | Outpatient (REF) | payer MEDICARE, SELFPAY ==
[2025-05-01 12:35] LABS: Hematocrit 38.3 % (39.0-52.0); Hemoglobin 12.0 g/dL (13.0-18.0); Mean Corp Hgb Conc. 31.3 g/dL (33.0-37.0); Mean Corpuscular Volume 88.2 fL (80.0-94.0); Nucleated Red Blood Cells % 0.5 % (-); Platelet Count 146 10^3/uL (130-400); Red Cell Dist. Width 15.0 % (11.5-14.5)
[2025-05-01 12:46] LABS: Albumin 4.1 g/dl (3.5-5.0); Carbon Dioxide 29 mmol/L (22-30); Total Protein 7.6 g/dl (6.3-8.2)
[2025-05-01 12:59] LABS: ALT (SGPT) 14 U/L (0-50); AST (SGOT) 21 U/L (17-59); Alkaline Phosphatase 83 U/L (38-126); Blood Urea Nitrogen 12 mg/dl (9-20); Calcium 9.0 mg/dl (8.4-10.2); Chloride 104 mmol/L (98-107); Glucose 103 mg/dl (70-99); HDL Cholesterol 39 mg/dl; LDL Cholesterol, Calculated 95 mg/dl; Potassium 4.5 mmol/L (3.5-5.1); Sodium 138 mmol/L (135-145); Uric Acid 8.2 mg/dl (3.5-8.5); Very Low Density Lipoprotein 23 mg/dl (0-30); eGFR > 60.00
== END ==
LOC: HWLAB 10:33
PROVIDERS: ATTENDING PHYSICIAN Student in an Organized Health Care Education/Training Program
DX: M10.9 Gout, unspecified (principal); I10 Essential (primary) hypertension
CPT/HCPCS: 36415; 80053; 80061; 84550; 85025

== ENCOUNTER → 2025-09-05 15:43 | Outpatient (REF) | payer MEDICARE, SELFPAY ==
[2025-09-05 16:13] LABS: Hematocrit 39.7 % (39.0-52.0); Hemoglobin 12.6 g/dL (13.0-18.0); Mean Corp Hgb Conc. 31.7 g/dL (33.0-37.0); Mean Corpuscular Volume 88.6 fL (80.0-94.0); Nucleated Red Blood Cells % 1.2 % (-); Platelet Count 157 10^3/uL (130-400); Red Cell Dist. Width 15.2 % (11.5-14.5)
== END ==
LOC: CLAB 15:43
PROVIDERS: ATTENDING PHYSICIAN Student in an Organized Health Care Education/Training Program
DX: D64.9 Anemia, unspecified (principal)
CPT/HCPCS: 36415; 85025